=== PATIENT | male | born 1960 | race Caucasian/White ===

== ENCOUNTER → 2016-10-07 | Day surgery (SDC) | payer OTHER ==
[~2016-10-07] MED LIST: ALPRAZOLAM PO; ASPIRIN PO; CENTRUM PO; CIPRO PO; FISH OIL 1,0001 CAP PO; FLOMAX0.4 M1 PO; GABAPENTIN300 MG PO; HYDROCODON-ACE1 EAC5 PO; LAMICTAL100 MG PO; LAMICTAL25 MG PO; LORCET 10/650 T1 TAB PO; LORTAB 10/500 T1 TAB PO; LYRICA PO; MOBIC15 MG PO; PAIN CREAM; PERCOCET 10/3251 TAB PO; VALIUM10 MG PO
--- NOTE | ~2016-10-07 | OR ---
Unit #: [id number] #: [id number] Patient: JAVI GONSALES [id number] [address] [address] [id number] MR#: [id number] NAME: JAVI GONSALES. ROOM: Date of Procedure: 10/07/2016 Admission Date: 10/07/2016 Surgeon: Felix Dye M.D. : 1960 Attending Physician: Felix Dye M.D. Primary Care Physician: Generic Doctor Not In System OPERATIVE REPORT PREOPERATIVE DIAGNOSES Neck pain, cervical radiculopathy and degenerative cervical disk disease. POSTOPERATIVE DIAGNOSES Neck pain, cervical radiculopathy and degenerative cervical disk disease. PROCEDURE PERFORMED Cervical epidural steroid injection with intravenous sedation under fluoroscopic guidance for needle localization. HISTORY The patient is a 56-year-old male who had return of neck and left upper extremity pain associated with known severe cervical degenerative disk disease at C5-C6 and C6-7 last year with an epidural steroid injection in 07/2015. He did well until about May of this year. It has given about 10 months of 60% plus improvement. He also got a single injection one year prior to that. Based on his history, pathology, and symptomatology, we are going to proceed with a repeat epidural today. DESCRIPTION OF PROCEDURE The patient was placed in a seated position. Standard monitors were applied. Then, 2 mg of Versed were given for sedation and anxiolysis, which were adequate. Vital signs remained stable. Sterile prep and drape then of the cervical area was performed. The skin then at the C6 level was localized with 1% lidocaine. An 18-gauge [employer] needle was then advanced via hanging drop technique and fluoroscopic guidance in toward the epidural space. After confirming proper positioning with fluoroscopy and radiographic contrast, 80 mg of Depo-Medrol and 2 mL of 0.25% bupivacaine were deposited. The patient tolerated the procedure otherwise well and was discharged to recovery room in stable condition. Dictated by... Ariela Mai/christiannel TD: 10/07/2016 11:01 JOB #: [id number] CC: [facility] Unit #: [id number] #: [id number] Patient: JAVI GONSALES OPERATIVE REPORT Page 1 of 1 X Felix Dye MD X PROCEDURE OPERATIVE NOTE
== END | disposition home or self-care (01) ==
LOC: CCSC 07:38
DX: M50.122 Cervical disc disorder at C5-C6 level with radiculopathy (principal); Z85.89 Personal history of malignant neoplasm of other organs and systems; Z79.899 Other long term (current) drug therapy
CPT/HCPCS: J1040; J2250